=== PATIENT | female | born 1960 | race Caucasian/White ===

== ENCOUNTER 2018-03-27 09:02 | Emergency (ER) | payer MEDICAID, OTHER ==
[~2018-03-27] VITALS: Ht 157.5 cm; Wt 70.5 kg
[~2018-03-27 09:02] MED LIST: FLUO-191 PO; ZOLP10TA6 PO
[2018-03-27] MEDS: METHOCARBAMOL 500 MG TABLET PO ONE (10:43)
[2018-03-27] MEDS: KETOROLAC TROMETHAMINE 60 MG/2 ML VIAL IM ONE (10:44)
[2018-03-27 11:46] VITALS: BP 141/102
== END 2018-03-27 12:37 | disposition home or self-care (01) ==
LOC: EMS 09:03
DX: M54.42 Lumbago with sciatica, left side (principal); F41.9 Anxiety disorder, unspecified; F32.9 Major depressive disorder, single episode, unspecified; F17.210 Nicotine dependence, cigarettes, uncomplicated; Z98.51 Tubal ligation status
CPT/HCPCS: 96372; 99283; J1885

== ENCOUNTER 2018-03-31 09:13 | Emergency (ER) | payer MEDICAID ==
[~2018-03-31] VITALS: Ht 157.5 cm; Wt 65.0 kg
[2018-03-31] MEDS: HYDROCODONE/ACETAMINOPHEN 5-325 MG TABLET PO ONE (11:45)
[2018-03-31] MEDS: CYCLOBENZAPRINE HCL 10 MG TABLET PO ONE (11:45)
[2018-03-31] MEDS: KETOROLAC TROMETHAMINE 30 MG/ML VIAL IM ONE (11:45)
[2018-03-31] MEDS: LIDOCAINE 5% TRANSDERMAL PATCH TD ONE (11:45)
[2018-03-31 11:49] VITALS: BP 131/69
== END 2018-03-31 12:37 | disposition home or self-care (01) ==
LOC: EMS 09:14
DX: M54.42 Lumbago with sciatica, left side (principal); F41.9 Anxiety disorder, unspecified; F32.9 Major depressive disorder, single episode, unspecified; F17.210 Nicotine dependence, cigarettes, uncomplicated; Z59.0 Homelessness; Z98.51 Tubal ligation status
CPT/HCPCS: 96372; 99284; 99406; J1885

== ENCOUNTER 2018-04-30 15:59 | Emergency (ER) | payer MEDICAID | END 2018-04-30 18:10 | disposition left against medical advice (07) | LOC: EMS 16:00 | DX: M54.9 Dorsalgia, unspecified (principal); Z53.21 Procedure and treatment not carried out due to patient leaving prior to being seen by health care provider ==

== ENCOUNTER 2018-08-28 03:51 | Emergency (ER) | payer MEDICAID ==
[~2018-08-28] VITALS: Ht 157.5 cm; Wt 74.1 kg
[2018-08-28] MEDS ORDERED: RISP1 PO (04:08)
[2018-08-28] MEDS ORDERED: TRAZ-220 PO (04:08)
[2018-08-28] MEDS ORDERED: DIVA250T45 PO (04:08)
[2018-08-28] MEDS ORDERED: KETOROLAC TROMETHAMINE 30 MG/ML VIAL IVP ONE (05:30)
[2018-08-28] MEDS ORDERED: SODIUM CHLORIDE 0.9% 1,000 ML IV ONE (05:30)
[2018-08-28] MEDS ORDERED: ONDANSETRON HCL 4 MG/2 ML VIAL IVP ONE (05:30)
[2018-08-28] MEDS ORDERED: ACETAMINOPHEN 500 MG TABLET PO ONE (05:30)
[2018-08-28 05:50] VITALS: BP 124/71
[2018-08-30] MEDS ORDERED: TRAZ-252 PO (14:51)
[2018-08-30] MEDS ORDERED: DIVA500T52 PO (14:51)
[2018-08-30] MEDS ORDERED: IBUP-2070 PO (14:51)
[2018-08-30] MEDS ORDERED: RISP.5 PO (14:51)
[2018-08-30] MEDS ORDERED: BACL10TA PO (14:51)
[2018-08-30] MEDS ORDERED: ONDA4 PO (14:51)
[2018-08-30] MEDS ORDERED: FLUO-191 PO (14:51)
== END 2018-08-28 06:15 | disposition home or self-care (01) ==
LOC: EMS 03:54
DX: J06.9 Acute upper respiratory infection, unspecified (principal); R51 Headache; R11.2 Nausea with vomiting, unspecified; F31.9 Bipolar disorder, unspecified; F41.9 Anxiety disorder, unspecified; Z59.0 Homelessness; Z88.8 Allergy status to other drugs, medicaments and biological substances
CPT/HCPCS: 96361; 96374; 96375; 99283; J1885; J2405; J7030

== ENCOUNTER 2019-11-08 13:36 | Emergency (ER) | payer MEDICAID ==
[~2019-11-08] VITALS: Ht 157.5 cm; Wt 63.6 kg
[~2019-11-08 13:36] MED LIST changes: +BACL10TA PO; +DIVA-80 PO; +DIVA-85 PO; +IBUP-2070 PO; +ONDA-104 PO; +RISP0.5T20 PO; +RISP1TAB27 PO; +TRAZ-252 PO; +TRAZ-257 PO
[2019-11-08 13:40] VITALS: BP 119/64
== END 2019-11-08 14:40 | disposition left against medical advice (07) ==
LOC: EMS 13:38
DX: Z76.0 Encounter for issue of repeat prescription (principal); Z53.21 Procedure and treatment not carried out due to patient leaving prior to being seen by health care provider